=== PATIENT | male | born 1985 | race Two or more races ===

== ENCOUNTER 2024-04-07 09:03 | Emergency (ER) | payer OTHER ==
[~2024-04-07] VITALS: Ht 190.5 cm; Wt 108.9 kg
[2024-04-07] MEDS ORDERED: METOCLOPRAMIDE HCL 5 MG/ML VIAL IM ONE (10:00)
[2024-04-07 10:22] LABS: HEMATOCRIT 47.6 % (39.0-48.0); HEMOGLOBIN 16.5 g/dL (13-16.00); MEAN CELL VOLUME 88.5 fL (80.0-100.00); MEAN CORPUSCULAR HEMOGLOBIN 30.8 pg (27.00-32.0); MEAN CORPUSCULAR HGB CONC 34.8 g/dl (32.0-36.0); PLATELET COUNT 219 K/uL (150-450); RED BLOOD COUNT 5.37 M/uL (4.00-6.00); RED CELL DISTRIBUTION WIDTH 12.9 % (11.5-14.5)
[2024-04-07 10:33] LABS: CALCIUM 9.3 mg/dL (8.5-10.1); CREATININE SERUM 1.14 mg/dL (0.70-1.30); GFR 72.68; POTASSIUM 4.01 mEq/L (3.5-5.1)
== END 2024-04-07 13:27 | disposition home or self-care (01) ==
LOC: ER 09:04
PROVIDERS: General Practice
DX: R51.9 Headache, unspecified (principal); Z20.822 Contact with and (suspected) exposure to COVID-19